=== PATIENT | female | born 1935 | race Caucasian/White ===

== ENCOUNTER → 2018-02-04 | Day surgery (SDC) | payer MEDICARE, OTHER ==
[~2018-02-04] MED LIST: AMLO5TAB7 PO; ASPI325T8 PO; BYSTOLIC20 MG PO; IV RINGERS,LACTATED 1000ML 1,000 ML IV SCH; LIDOCAINE 1% PF 2 ML VIAL. ID PRN; LIDOCAINE 1% PF 2 ML VIAL. ONE; LOSA100T7 PO; METF10007 PO; MIDAZOLAM HCL/PF 2 MG/2 ML VIAL. IV PRN; PANT20TA2 PO; PRAV10TA2 PO; PROPOFOL 20 ML IV ONE; fentaNYL PF VIAL 100 MCG/2 ML VIAL IV PRN
[2018-02-04 10:28] VITALS: BP 177/84
--- NOTE | 2018-02-07 14:07 | PATHOLOGY ---
[facility] Accession Number: [id number] . 01 Material submitted: . DISTAL ESOPHAGUS BIOPSY . 01 Clinical history: . GERD . 02 Diagnosis: Esophageal biopsies, distal esophagus: - Segments of hyperplastic squamous esophageal mucosa and segment of gastric mucosa showing chronic inflammation, consistent with reflux esophagitis. (JPM:christopher; 02/07/2018) QMS/02/07/2018 . 02 Comment: Sections of the distal esophageal biopsy reveal multiple segments of tangentially oriented hyperplastic squamous esophageal mucosa and a segment of gastric mucosa showing [id number] chronic inflammation. The findings are consistent with reflux esophagitis. There is no evidence of Funk's change, dysplasia, or malignancy. (JPM:christopher; 02/07/2018) . 02 Electronically signed: . Bienvenido Varela MD, Pathologist NPI- [id number] . 01 Gross description: . Received in formalin labeled "Wideman, Ghislaine, distal esophagus BX," are 4 segments of tristan soft tissue measuring 1.0 x 0.6 x 0.3 cm in aggregate dimensions and ranging from 0.3 to 0.4 cm in maximum dimension. The specimen is submitted entirely in cassette A1. (TSD; 02/04/2018) TOB/TOB . 02 Pathologist provided ICD-10: K21.0 . 02 CPT . 646013 Specimen Comment: A courtesy copy of this report has been sent to Specimen Comment: [phone], . Specimen Comment: Report sent to / DR SPICER Specimen Comment: A duplicate report has been generated due to demographic updates. Performed at: [address] [id number] MD Juno Carballo MD Phone: [phone] Performed at: [address] [id number] MD Bienvenido Varela MD Phone: [phone]
== END | disposition home or self-care (01) ==
LOC: SURG 08:26
PROVIDERS: ATTEND Internal Medicine Gastroenterology
DX: K21.0 Gastro-esophageal reflux disease with esophagitis (principal); I10 Essential (primary) hypertension; E78.00 Pure hypercholesterolemia, unspecified; G47.30 Sleep apnea, unspecified; K21.9 Gastro-esophageal reflux disease without esophagitis; E11.9 Type 2 diabetes mellitus without complications; Z90.710 Acquired absence of both cervix and uterus; Z98.890 Other specified postprocedural states; Z79.899 Other long term (current) drug therapy; Z85.828 Personal history of other malignant neoplasm of skin
CPT/HCPCS: 43239; 82962; 88305; J2704

== ENCOUNTER 2020-12-16 16:40 | Inpatient (IN) | payer MEDICARE, OTHER ==
[~2020-12-16] VITALS: Ht 154.9 cm; Wt 90.0 kg
[~2020-12-16 16:40] MED LIST changes: +ACET325T21 PO; +AMLO-186 PO; -AMLO5TAB7 PO; +ASPI81TA59 PO; +BIOT25006 PO; +CALC600T60 PO; +CETI10TA16 PO; +GUAI600T47 PO; +HYDR-2145 PO; +HYDR-2867 PO; +INSU100V35 SQ; +INSU100V8 SQ; -IV RINGERS,LACTATED 1000ML 1,000 ML IV SCH; -LIDOCAINE 1% PF 2 ML VIAL. ID PRN; -LIDOCAINE 1% PF 2 ML VIAL. ONE; +LOSA100T14 PO; -LOSA100T7 PO; +METO50TA6 PO; -MIDAZOLAM HCL/PF 2 MG/2 ML VIAL. IV PRN; -PROPOFOL 20 ML IV ONE; +THYR60TA PO; +UBID10CA5 PO; +ZINC50TA39 PO; +ZOLP5TAB PO; -fentaNYL PF VIAL 100 MCG/2 ML VIAL IV PRN
--- NOTE | 2020-12-16 16:45 | NUR ---
patient arrived via EMS in stable condition. slightly dizzy upon walking to bathroom.
[2020-12-16 18:00] VITALS: BP 139/65
[2020-12-16] MEDS ORDERED: CHOL500045 PO (19:08)
[2020-12-16] MEDS ORDERED: OMEG1CAP27 PO (19:08)
[2020-12-16] MEDS ORDERED: BYSTOLIC20 MG PO (19:13)
[2020-12-16] MEDS ORDERED: ASPI-630 PO (19:13)
[2020-12-16] MEDS ORDERED: ESCITALOPRAM OXA5 MG PO (19:13)
[2020-12-16] MEDS ORDERED: PRAV40TA2 PO (19:13)
[2020-12-16] MEDS ORDERED: ASCO500C9 PO (19:28)
[2020-12-16] MEDS ORDERED: PHYT100T PO (19:28)
[2020-12-16] MEDS ORDERED: CYAN50009 PO (19:28)
[2020-12-16] MEDS ORDERED: UBID100C26 PO (19:28)
[2020-12-16] MEDS ORDERED: PYRI100L2 PO (19:28)
--- NOTE | 2020-12-16 19:29 | NUR ---
patient and family DO NOT want patient to be switched to Metoprolol, patient takes Bystolic and has own home med that will be sent to pharmacy to tag to give to patient. Patient also takes Vitamin K (triple play) unable to enter that as a home med and will also be sent to pharmacy to tag. If any other medication on her home med list is not provided by [facility] the patient is to take her own home med per patient and family.
[2020-12-16] MEDS ORDERED: CALCIUM CARBONATE 500 MG TAB.CHEW PO PRN (20:15)
[2020-12-16] MEDS ORDERED: oxyCODONE/APAP 5/325 1 TAB TABLET PO PRN ×2 (20:15)
[2020-12-16] MEDS ORDERED: ONDANSETRON PF 4 MG/2 ML VIAL. IVP PRN (20:15)
[2020-12-16] MEDS ORDERED: ELECTROLYTE (NON-ICU) PROTOCOL. MC PRN (20:15)
[2020-12-16] MEDS ORDERED: ACETAMINOPHEN 325 MG TABLET. PO PRN ×2 (20:15)
[2020-12-16] MEDS ORDERED: ZOLPIDEM 5 MG TABLET. PO PRN ×2 (20:15)
[2020-12-16] MEDS ORDERED: NEBIVOLOL HCL 10 MG PO SCH (21:00)
[2020-12-16] MEDS: SENNOSIDES/DOCUSATE 8.6/50MG TABLET. PO SCH (21:00)
[2020-12-16] MEDS: HEPARIN for SUB-Q USE 5,000 UNIT/ML VIAL. SQ SCH (21:35)
[2020-12-16] MEDS ORDERED: HEPARIN for SUB-Q USE 5,000 UNIT/ML VIAL. SQ SCH (22:00)
[2020-12-16 23:00] VITALS: BP 125/70
[2020-12-17 03:00] VITALS: BP 139/64
[2020-12-17 07:00] VITALS: BP 170/66
[2020-12-17] MEDS ORDERED: PANTOPRAZOLE 40 MG TABLET.DR. PO SCH (07:30)
[2020-12-17] MEDS: HEPARIN for SUB-Q USE 5,000 UNIT/ML VIAL. SQ SCH (09:00)
[2020-12-17] MEDS ORDERED: CETIRIZINE HCL 10 MG TABLET. PO SCH (09:00)
[2020-12-17] MEDS ORDERED: hydroCHLOROthiazide 25 MG TABLET PO SCH (09:00)
[2020-12-17] MEDS ORDERED: ASPIRIN CHEWABLE 81 MG TABLET. PO SCH (09:00)
[2020-12-17] MEDS ORDERED: LOSARTAN POTASSIUM 50 MG TABLET. PO SCH (09:00)
[2020-12-17] MEDS ORDERED: ASPIRIN RECTAL 300 MG SUPP. PR PRN (10:00)
[2020-12-17] MEDS: SENNOSIDES/DOCUSATE 8.6/50MG TABLET. PO SCH (10:57)
[2020-12-17 11:00] VITALS: BP_SYST 129; BP_SYST 134; BP_SYST 145; BP_DIAS 70; BP_DIAS 73; BP_DIAS 76
--- NOTE | 2020-12-17 11:17 | NUR ---
SW following. Discussed with RN. pt from home with son, room air, cardiac diet. COVID-19 positive from test in [facility]. Neurology following.SW will continue to follow.
[2020-12-17 11:18] LABS: CHOLESTEROL/HDL RATIO 3.4
[2020-12-17] MEDS ORDERED: ASPIRIN ENTERIC COATED 325 MG TABLET.DR. PO SCH (12:00)
--- NOTE | 2020-12-17 14:03 | PDOC1 ---
History and Physical Date of Service: DOS: DATE: 12/17/20 TIME: 14:03 Chief Complaint: Problems: (1) Dizziness Chief Complain: Dizziness History of Present Illness: HPI: Patient is an 85-year-old female who presented to [facility] yesterday due to a 1 day history of dizziness. Patient reports she felt a bit dizzy Wednesday when at [employer] and this progressed notably to where she was dizzy with any sort of ambulation. Patient with previous CVA and July. Minimal residual deficits. At [facility] emergency room yesterday CT scan performed was all concerning for a posterior stroke. However could not be fully assessed on CT thus sent here for MRI. Evaluated at bedside patient was endorsing ongoing dizziness. Also endorsing occasional headaches. Denies any sort of vision changes, chest pain, shortness of breath, abdominal pain. Denies any new focal deficits. Patient being evaluated by neurology. Incidentally found to be Covid positive. Past Medical/Surgical History: PMH/PSH: Hypertension, hypothyroid, CVA July 2020 Allergies: Allergies: Coded Allergies: No Known Drug Allergies (Unverified , 02/04/18) Family History: Family History: Unknown Social History: Social History: Denies alcohol tobacco drug use Current Medications: Current Medications Current Medications Acetaminophen (Tylenol) 650 mg PRN Q6HRS PRN PO MILD PAIN / TEMP > 100.3'F; Start 12/16/20 at 20:15; Stop 12/16/20 at 20:51; Status DC Aspirin (Aspirin Chewable) 81 mg DAILY PO Last administered on 12/17/20at 10:56; Start 12/17/20 at 09:00 Cetirizine HCl (ZyrTEC) 10 mg DAILY PO Last administered on 12/17/20at 10:57; Start 12/17/20 at 09:00 Hydrochlorothiazide (Hydrodiuril) 25 mg DAILY PO Last administered on 12/17/20at 10:56; Start 12/17/20 at 09:00 Thyroid (Hope Thyroid) 60 mg 3X/WEEK PO ; Start 12/18/20 at 09:00; Stop 12/16/20 at 20:55; Status DC Zolpidem Tartrate (Ambien) 5 mg PRN QHS PRN PO INSOMNIA; Start 12/16/20 at 20:15; Status Cancel Non-Formulary Medication (Escitalopram Oxalate (Lexapro)) 0.5 tab DAILY PO ; Start 12/17/20 at 09:00; Stop 12/17/20 at 11:06; Status DC Losartan Potassium (Cozaar) 100 mg DAILY PO Last administered on 12/17/20at 10:57; Start 12/17/20 at 09:00 Non-Formulary Medication (Nebivolol Hcl (Bystolic)) 20 mg HS PO Last administered on 12/16/20at 21:31; Start 12/16/20 at 21:00 Pantoprazole Sodium (Protonix) 40 mg DAILYAC PO Last administered on 12/17/20at 10:57; Start 12/17/20 at 07:30 Non-Formulary Medication (Pravastatin Sodium ) 0.5 tab QHS PO Last administered on 12/16/20at 21:32; Start 12/16/20 at 21:00 Ondansetron HCl (Zofran) 4 mg PRN Q6HRS PRN IVP NAUSEA/VOMITING; Start 12/16/20 at 20:15 Calcium Carbonate/ Glycine (Tums) 500 mg PRN Q3HRS PRN PO UPSET STOMACH; Start 12/16/20 at 20:15 Zolpidem Tartrate (Ambien) 5 mg PRN QHS PRN PO INSOMNIA, MAY REPEAT IN 1HR Last administered on 12/16/20at 21:37; Start 12/16/20 at 20:15 Info (Non-Icu Electrolyte Protocol) 1 ea PRN DAILY PRN MC SEE COMMENTS; Start 12/16/20 at 20:15 Oxycodone/ Acetaminophen (Percocet 5/325) 1 tab PRN Q4HRS PRN PO MILD PAIN, 1ST CHOICE; Start 12/16/20 at 20:15 Oxycodone/ Acetaminophen (Percocet 5/325) 2 tab PRN Q4HRS PRN PO MODERATE PAIN, SEVERE PAIN; Start 12/16/20 at 20:15 Acetaminophen (Tylenol) 650 mg PRN Q6HRS PRN PO Headaches, Temp > 101.5F; Start 12/16/20 at 20:15 Senna/Docusate Sodium (Senna Plus) 1 tab BID PO Last administered on 12/17/20at 10:57; Start 12/16/20 at 21:00 Heparin Sodium (Porcine) (Heparin Sodium) 5,000 unit Q8HRS SQ ; Start 12/16/20 at 22:00; Status Cancel Heparin Sodium (Porcine) (Heparin Sodium) 5,000 unit Q12HR SQ Last administered on 12/16/20at 21:35; Start 12/16/20 at 21:00 Non-Formulary Medication (Hope Thyroid 60 Mg Tablet) 1 ea 3X/WEEK PO ; Start 12/18/20 at 09:00 Atorvastatin Calcium (Lipitor) 80 mg QHS PO ; Start 12/17/20 at 21:00; Stop 12/17/20 at 13:08; Status DC Aspirin (Ecotrin) 325 mg DAILYWBKFT PO ; Start 12/17/20 at 12:00 Aspirin (Aspirin Rectal Supp) 300 mg PRN DAILY PRN RI IF UNABLE TO TAKE PO; Start 12/17/20 at 10:00 Non-Formulary Medication (Escitalopram Oxalate (Lexapro)) 0.5 tab NOON PO Last administered on 12/17/20at 12:00; Start 12/17/20 at 12:00 Active Scripts Active Acetaminophen 325 Mg Tablet 650 Mg PO PRN Q6HRS PRN 30 Days Reported Vitamin K (Phytonadione) 100 Mcg Tablet 1 Tab PO 3X/WEEK 30 Days Vitamin B12 (Cyanocobalamin (Vitamin B-12)) 5,000 Mcg Tab.rapdis 1 Tab PO 3X/W [place] 30 Days Vitamin C (Ascorbic Acid) 500 Mg Capsule 1,000 Mg PO 3X/WEEK Vitamin B6 (Pyridoxine HCl (Vitamin B6)) 100 Mg/2.5 Ml Liquid 100 Mg PO 3X/WEEK Coq-10 (Ubidecarenone) 100 Mg Capsule 100 Mg PO 3X/WEEK Pravastatin Sodium 40 Mg Tablet 1 Tab PO QHS Bystolic (Nebivolol Hcl) 20 Mg Tablet 20 Mg PO HS Lexapro (Escitalopram Oxalate) 5 Mg Tablet 1 Tab PO DAILY 30 Days Aspirin 81 Mg Tab.chew 1 Tab PO DAILY Fish Oil 1,000 Mg Softgel ([place]-3 Fatty Acids/Fish Oil) 1 Each Capsule 1 Cap PO QID 30 Days WITH MEALS Vitamin D3 (Cholecalciferol (Vitamin D3)) 125 Mcg Tablet 125 Mcg PO DAILY Ambien (Zolpidem Tartrate) 5 Mg Tablet 5 Mg PO PRN QHS PRN Biotin 2,500 Mcg Capsule 2 Cap PO DAILY 30 Days Hope Thyroid (Thyroid,Pork) 60 Mg Tablet 1 Tab PO 3X/WEEK Zinc 50 Mg Tablet 1 Tab PO 3X/WEEK 30 Days Hydrochlorothiazide Tablet (Hydrochlorothiazide) 25 Mg Tablet 25 Mg PO DAILY Cetirizine Hcl 10 Mg Tablet 1 Tab PO DAILY Mucinex (Guaifenesin) 600 Mg Tablet.er 1 Tab PO DAILY 10 Days Protonix (Pantoprazole Sodium) 20 Mg Tablet.dr 40 Mg PO DAILY Metformin Hcl 1,000 Mg Tablet 1,000 Mg PO BIDWMEALS Losartan Potassium 100 Mg Tablet 100 Mg PO DAILY ROS: Review of Systems Review of System Negative unless noted in HPI Physical Exam: Vital Signs: Vital Signs Date Time Temp Pulse Resp B/P (MAP) Pulse Ox O2 Delivery O2 Flow Rate FiO2 12/17/20 11:00 72 145/76 (99) 12/17/20 11:00 98.4 18 95 Room Air 98.4 Physcial Exam: GEN: No apparent distress. Alert and oriented HEENT: Normal cephalic, atraumatic, external auditory canals are patent EYES: Extraocular muscles are intact, pupil are equally round and reactive to light and accommodation MUSCULOSKELETAL: Well developed , well nourished, good range of motion ENDOCRINE: No thyromegaly was palpated LYMPHATICS: No cervical chain or axillary nodes were noted HEMATOPOIETIC: No bruising NECK: Supple, no JVD, no thyromegaly was noted LUNGS: Clear to auscultation in all lung duong without rhonchi or wheezing HEART: RRR, S!, S2 present. Peripheral pulses intact, no obvious murmurs noted ABDOMEN: Soft, nontender. Positive bowel sounds, no organomegaly, normal bowel sounds EXTREMITIES: Without clubbing, cyanosis, or edema. Pedal pulses intact. Negative Homans sign NEUROLOGIC: Normal speech and tone. A&O x 3, moves all extremities, no o bvious focal deficits PSYCHIATRIC: Normal affect, normal mood. Stable SKIN: No ulcerations or rashes, good skin turgor, no jaundice VASCULAR: Good capillary refill, neurovascular bundle appears to be intact Labs: Labs: Laboratory Tests Test 12/17/20 10:30 Triglycerides Level 112 mg/dL (0-150) Cholesterol Level 168 mg/dL (0-200) LDL Cholesterol, Calculated 96 mg/dL (0-100) VLDL Cholesterol, Calculated 22 mg/dL (0-40) Non-HDL Cholesterol Calculated 118 mg/dL (0-129) HDL Cholesterol 50 mg/dL (40-60) Cholesterol/HDL Ratio 3.4 Laboratory Tests Test 12/17/20 10:30 Triglycerides Level 112 mg/dL (0-150) Cholesterol Level 168 mg/dL (0-200) LDL Cholesterol, Calculated 96 mg/dL (0-100) VLDL Cholesterol, Calculated 22 mg/dL (0-40) Non-HDL Cholesterol Calculated 118 mg/dL (0-129) HDL Cholesterol 50 mg/dL (40-60) Cholesterol/HDL Ratio 3.4 Assessment/Plan Assessment/Plan Dizziness likely peripheral vertigo, History of left thalamic hemorrhage, Covid positive MRI ordered and pending. If patient needs to stay overnight will have PT OT evaluate Home meds resumed as indicated DVT prophylaxis If MRI normal will discharge home and have neurology follow-up Discussed plan and case with patient's family Justifications for Admission Other Justification Acute thalamic hemorrhage DAT DHALIWAL MD Dec 17, 2020 14:03
[2020-12-17 15:00] VITALS: BP 129/60
--- NOTE | 2020-12-17 15:16 | PDOC2 ---
NEUROLOGY CONSULT Date of Service DOS: DATE: 12/17/20 TIME: 15:07 Reason for Consult Reason for Consult: Dizziness, ataxia Referring Physician Referring Physician: Dr. Neff Source Source: Caregiver (Daughter), Chart review, Patient History of Present Illness History of Present Illness The patient is an 85-year-old right-handed female who felt a little bit off balance on 12/15 when going to [employer]ab[employer], then was more dizzy yesterday. She says that the room was spinning although she told the emergency department physician yesterday that it was not spinning. There was no dysarthria, diplopia, or dysphagia. I saw the patient in July for a left thalamic hemorrhagic stroke. Follow-up CT scans, CT angiogram, echocardiogram were unremarkable. She had physical and Occupational Therapy. I saw her in the office on 09/13. She was complaining of some bilateral hip pain, left leg numbness, anxiety and panic for which her primary care physician started Lexapro. Interestingly then she was complaining of occasional positional vertigo and headaches. I reviewed the [facility] emergency room visit from yesterday. She did have a negative CT of the head and CT angiogram. She is rapid Covid negative but PCR positive. She has had no Covid symptoms. She is feeling better today and would like to go home. Past Medical History Cardiovascular: HTN CENTRAL NERVOUS SYSTEM: CVA (Left thalamic hemorrhage, 07/2020) Musculoskeletal: Osteoarthritis Endocrine: Hypothyroidism Past Surgical History Past Surgical History: Cataract Removal, Hysterectomy, Other (Left knee, trigger finger release) Family History Family History: CVA, Hypertension Social History Social History No tobacco or alcohol, lives with family Current Medications Current Medications Current Medications Acetaminophen (Tylenol) 650 mg PRN Q6HRS PRN PO MILD PAIN / TEMP > 100.3'F; Start 12/16/20 at 20:15; Stop 12/16/20 at 20:51; Status DC Aspirin (Aspirin Chewable) 81 mg DAILY PO Last administered on 12/17/20at 10:56; Start 12/17/20 at 09:00 Cetirizine HCl (ZyrTEC) 10 mg DAILY PO Last administered on 12/17/20at 10:57; Start 12/17/20 at 09:00 Hydrochlorothiazide (Hydrodiuril) 25 mg DAILY PO Last administered on 12/17/20at 10:56; Start 12/17/20 at 09:00 Thyroid (Jackson Thyroid) 60 mg 3X/WEEK PO ; Start 12/18/20 at 09:00; Stop 12/16/20 at 20:55; Status DC Zolpidem Tartrate (Ambien) 5 mg PRN QHS PRN PO INSOMNIA; Start 12/16/20 at 20:15; Status Cancel Non-Formulary Medication (Escitalopram Oxalate (Lexapro)) 0.5 tab DAILY PO ; Start 12/17/20 at 09:00; Stop 12/17/20 at 11:06; Status DC Losartan Potassium (Cozaar) 100 mg DAILY PO Last administered on 12/17/20at 10:57; Start 12/17/20 at 09:00 Non-Formulary Medication (Nebivolol Hcl (Bystolic)) 20 mg HS PO Last administered on 12/16/20at 21:31; Start 12/16/20 at 21:00 Pantoprazole Sodium (Protonix) 40 mg DAILYAC PO Last administered on 12/17/20at 10:57; Start 12/17/20 at 07:30 Non-Formulary Medication (Pravastatin Sodium ) 0.5 tab QHS PO Last administered on 12/16/20at 21:32; Start 12/16/20 at 21:00 Ondansetron HCl (Zofran) 4 mg PRN Q6HRS PRN IVP NAUSEA/VOMITING; Start 12/16/20 at 20:15 Calcium Carbonate/ Glycine (Tums) 500 mg PRN Q3HRS PRN PO UPSET STOMACH; Start 12/16/20 at 20:15 Zolpidem Tartrate (Ambien) 5 mg PRN QHS PRN PO INSOMNIA, MAY REPEAT IN 1HR Last administered on 12/16/20at 21:37; Start 12/16/20 at 20:15 Info (Non-Icu Electrolyte Protocol) 1 ea PRN DAILY PRN MC SEE COMMENTS; Start 12/16/20 at 20:15 Oxycodone/ Acetaminophen (Percocet 5/325) 1 tab PRN Q4HRS PRN PO MILD PAIN, 1ST CHOICE; Start 12/16/20 at 20:15 Oxycodone/ Acetaminophen (Percocet 5/325) 2 tab PRN Q4HRS PRN PO MODERATE PAIN, SEVERE PAIN; Start 12/16/20 at 20:15 Acetaminophen (Tylenol) 650 mg PRN Q6HRS PRN PO Headaches, Temp > 101.5F; Start 12/16/20 at 20:15 Senna/Docusate Sodium (Senna Plus) 1 tab BID PO Last administered on 12/17/20at 10:57; Start 12/16/20 at 21:00 Heparin Sodium (Porcine) (Heparin Sodium) 5,000 unit Q8HRS SQ ; Start 12/16/20 at 22:00; Status Cancel Heparin Sodium (Porcine) (Heparin Sodium) 5,000 unit Q12HR SQ Last administered on 12/16/20at 21:35; Start 12/16/20 at 21:00 Non-Formulary Medication (Jackson Thyroid 60 Mg Tablet) 1 ea 3X/WEEK PO ; Start 12/18/20 at 09:00 Atorvastatin Calcium (Lipitor) 80 mg QHS PO ; Start 12/17/20 at 21:00; Stop 12/17/20 at 13:08; Status DC Aspirin (Ecotrin) 325 mg DAILYWBKFT PO ; Start 12/17/20 at 12:00 Aspirin (Aspirin Rectal Supp) 300 mg PRN DAILY PRN AL IF UNABLE TO TAKE PO; Start 12/17/20 at 10:00 Non-Formulary Medication (Escitalopram Oxalate (Lexapro)) 0.5 tab NOON PO Last administered on 12/17/20at 12:00; Start 12/17/20 at 12:00 Active Scripts Active Acetaminophen 325 Mg Tablet 650 Mg PO PRN Q6HRS PRN 30 Days Reported Vitamin K (Phytonadione) 100 Mcg Tablet 1 Tab PO 3X/WEEK 30 Days Vitamin B12 (Cyanocobalamin (Vitamin B-12)) 5,000 Mcg Tab.rapdis 1 Tab PO 3X/WEEK 30 Days Vitamin C (Ascorbic Acid) 500 Mg Capsule 1,000 Mg PO 3X/WEEK Vitamin B6 (Pyridoxine HCl (Vitamin B6)) 100 Mg/2.5 Ml Liquid 100 Mg PO 3X/WEEK Coq-10 (Ubidecarenone) 100 Mg Capsule 100 Mg PO 3X/WEEK Pravastatin Sodium 40 Mg Tablet 1 Tab PO QHS Bystolic (Nebivolol Hcl) 20 Mg Tablet 20 Mg PO HS Lexapro (Escitalopram Oxalate) 5 Mg Tablet 1 Tab PO DAILY 30 Days Aspirin 81 Mg Tab.chew 1 Tab PO DAILY Fish Oil 1,000 Mg Softgel ([place]-3 Fatty Acids/Fish Oil) 1 Each Capsule 1 Cap PO QID 30 Days WITH MEALS Vitamin D3 (Cholecalciferol (Vitamin D3)) 125 Mcg Tablet 125 Mcg PO DAILY Ambien (Zolpidem Tartrate) 5 Mg Tablet 5 Mg PO PRN QHS PRN Biotin 2,500 Mcg Capsule 2 Cap PO DAILY 30 Days [place] Thyroid (Thyroid,Pork) 60 Mg Tablet 1 Tab PO 3X/WEEK Zinc 50 Mg Tablet 1 Tab PO 3X/WEEK 30 Days Hydrochlorothiazide Tablet (Hydrochlorothiazide) 25 Mg Tablet 25 Mg PO DAILY Cetirizine Hcl 10 Mg Tablet 1 Tab PO DAILY Mucinex (Guaifenesin) 600 Mg Tablet.er 1 Tab PO DAILY 10 Days Protonix (Pantoprazole Sodium) 20 Mg Tablet.dr 40 Mg PO DAILY Metformin Hcl 1,000 Mg Tablet 1,000 Mg PO BIDWMEALS Losartan Potassium 100 Mg Tablet 100 Mg PO DAILY Allergies Allergies: Coded Allergies: No Known Drug Allergies (Unverified , 02/04/18) ROS Review of System Negative for fever, chills, weight loss, shortness of breath, chest pain, indigestion, hematochezia, melena, and dysuria. Full 14-point review of systems is negative. Physical Exam Physical Examination General: Well-developed, well-nourished white female, in no acute distress HEENT: Normocephalic andatraumatic. Tympanic membranes clear.Temporal arteries pulsatile and nontender.e Neck: Supple without bruit, no meningismus Musculoskeletal: Stability:see neurologic. Gait exam:see neurologic. Tone:see neurologic.Strength:see neurologic. Neurological: Mental Status:intact, orientation, memory, attention span/concentration, language, fund of knowledge normal. Cranial Nerves:Pupils equal and reactive to light, extraocular movements areintact, visual duong are full to confrontation. Facial sensation is normal. There is no facial asymmetry. Vestibulo-ocular reflex is intact. No nystagmus evoked. Palate elevates and tongue protrudes in midline. All other cranial related problems are negative except as mentioned before.Reflexes:2+ and symmetric with flexor plantar responses. Motor:5/5 strength with normal tone and bulk. Coordination:Finger- nose finger and [id number] testing are normal. Rapid alternating movements and fine finger movements are intact. Gait:A little unsteady. Sensory:Normal pinprick, vibration, light touch, proprioception. Vitals VITALS Vital Signs Date Time Temp Pulse Resp B/P (MAP) Pulse Ox O2 Delivery O2 Flow Rate FiO2 12/17/20 11:00 72 145/76 (99) 12/17/20 11:00 98.4 18 95 Room Air 98.4 Labs Labs Laboratory Tests Test 12/17/20 10:30 Triglycerides Level 112 mg/dL (0-150) Cholesterol Level 168 mg/dL (0-200) LDL Cholesterol, Calculated 96 mg/dL (0-100) VLDL Cholesterol, Calculated 22 mg/dL (0-40) Non-HDL Cholesterol Calculated 118 mg/dL (0-129) HDL Cholesterol 50 mg/dL (40-60) Cholesterol/HDL Ratio 3.4 Laboratory Tests Test 12/17/20 10:30 Triglycerides Level 112 mg/dL (0-150) Cholesterol Level 168 mg/dL (0-200) LDL Cholesterol, Calculated 96 mg/dL (0-100) VLDL Cholesterol, Calculated 22 mg/dL (0-40) Non-HDL Cholesterol Calculated 118 mg/dL (0-129) HDL Cholesterol 50 mg/dL (40-60) Cholesterol/HDL Ratio 3.4 Images Images CTA Head: Aplastic/markedly hypoplastic left A1 segment. The visualized distal internal carotid arteries, anterior and middle cerebral arteries are patent and normal caliber. The distal vertebral arteries, basilar artery, and posterior cerebral arteries are patent and normal caliber. No aneurysm or arteriovenous malformation is seen. CTA Neck: Right carotid: The right common carotid artery is patent and normal caliber. Atherosclerosis of the carotid bifurcation. No stenosis of the right internal carotid artery per NASCET criteria. The right external carotid artery is patent. Left carotid: The left common carotid artery is patent and normal caliber. At herosclerosis of the carotid bifurcation. 50 percent stenosis of the left internal carotid artery per NASCET criteria. The left external carotid artery is patent. Right vertebral: The right vertebral artery is patent and normal caliber. Left vertebral: The left vertebral artery is patent and normal caliber. The visualized portions of the aortic arch are normal. The origins of the brachiocephalic and subclavian arteries are normal. No cervical lymphadenopathy. The thyroid gland is normal. The parotid and submandibular glands are normal. The visualized aerodigestive tract is unremarkable. Moderate multilevel degenerative disc height loss. Multilevel disc protrusions and marginal osteophytes results in multilevel spinal canal stenosis. Multilevel uncovertebral and facet arthrosis with multilevel neural foraminal narrowing. The visualized portions of the lungs are clear. IMPRESSION: 1. No aneurysm. No intracranial stenosis or occlusion. 2. Atherosclerosis of the cervical carotid arteries with no stenosis on the right and 50 percent stenosis on the left. 3. Patent vertebral arteries. CT STROKE HEAD W/O Date: 12/16/2020 11:03 AM Clinical Indication: dizzy Comparison: 08/19/2020. Technique: 5 mm axial tomographic images were obtained of the head without contrast. These were viewed on brain and bone windows. One or more of the following dose reduction techniques were utilized: Automated exposure control (AEC), Adjustment of mA and/or kV according to patient size, Use of iterative reconstruction technique such as ASiR, CT scan done according to ALARA and image gently/image wisely Findings: Mild generalized cerebral and cerebellar volume loss. Mild nonspecific periventricular hypoattenuation, most commonly seen with chronic small vessel ischemic disease. Calcified atherosclerosis of the bilateral cavernous and paraclinoid internal carotid arteries and intracranial vertebral arteries. No intra- or extra-axial mass or fluid collection. No acute hemorrhage. The ventricles are normal in size, shape, and morphology. The melvin-white matter junction is normal. The subarachnoid cisterns are patent. The visualized paranasal sinuses are normal. The visualized portions of the orbits and globes are normal. The mastoid air cells are clear. The fleet administrative assistant topogram shows no lytic lesion or fracture. Impression: No acute hemorrhage or large territory melvin-white loss. Assessment/Plan Assessment/Plan Impression: I suspect peripheral vertigo, she has had this before History of left thalamic hemorrhage Covid positive Recommendations: Await MRI results Further stroke work-up only if abnormal Otherwise outpatient vestibular rehab Return to my office in 4-6 weeks. Discussed with patient and her daughter. Thank you for letting me help with the patient's care. EVELIN MOJICA MD Dec 17, 2020 15:16
--- NOTE | 2020-12-17 16:34 | CARD ---
MR#: [id number] Date of Study: 12/17/2020 Ordering Physician: EVELIN MOJICA, Referring Physician: EVELIN MOJICA, Tech: Archana Troncoso [facility] APPROVED REPORT EXAM: Two-dimensional and M-mode echocardiogram with Doppler and color Doppler. Other Information Quality : AverageHR: 65bpm Rhythm : NSR INDICATION Dizziness and Vertigo RISK FACTORS Hypertension Obesity 2D DIMENSIONS RVDd2.6 (2.9-3.5cm)Left Atrium(2D)3.2 (1.6-4.0cm) IVSd0.8 (0.7-1.1cm)Aortic Root(2D)3.0 (2.0-3.7cm) LVDd3.8 (3.9-5.9cm)LVOT Diameter2.2 (1.8-2.4cm) PWd0.9 (0.7-1.1cm)LVDs2.7 (2.5-4.0cm) FS (%) 27.6 %SV33.2 ml Aortic Valve AoV Peak Varinder.110.4cm/sAoV VTI25.5cm AO Peak GR.4.9mmHgLVOT Peak Varinder.84.8cm/s AO Mean GR.3mmHgAVA (VMAX)2.98cm2 Mitral Valve MV E Zubzvcqm80.3cm/sMV DECEL [id number] MV A Ssyqqxnw14.5cm/sE/A Ratio1.0 Pulmonary Valve PV Peak Uzcceftl92.3cm/s Tricuspid Valve TR P. Gdvsweia253ht/sTR Peak Gr.22mmHg LEFT VENTRICLE The left ventricle is normal size. There is normal left ventricular wall thickness. The left ventricu lar systolic function is normal and the ejection fraction is within normal range. Estimated ejection fraction 60-65%. There is normal LV segmental wall motion. Transmitral Doppler flow pattern is Grade I-abnormal relaxation pattern. RIGHT VENTRICLE The right ventricle is normal size. There is normal right ventricular wall thickness. The right ventr icular systolic function is normal. ATRIA The left atrium size is normal. The right atrium size is normal. The interatrial septum is intact wit h no evidence for an atrial septal defect or patent foramen ovale as noted on 2-D or Doppler imaging. AORTIC VALVE The aortic valve is normal in structure and function. Doppler and Color Flow revealed no significant aortic regurgitation. There is no significant aortic valvular stenosis. MITRAL VALVE The mitral valve is normal in structure and function. There is no evidence of mitral valve prolapse. There is no mitral valve stenosis. Doppler and Color-flow revealed mild mitral regurgitation. TRICUSPID VALVE The tricuspid valve is normal in structure and function. Doppler and Color Flow revealed trace tricus pid regurgitation. Estimated PAP 27 mmHg. There is no tricuspid valve stenosis. PULMONIC VALVE The pulmonary valve is normal in structure and function. Doppler and Color Flow revealed mild pulmoni c valvular regurgitation. GREAT VESSELS The aortic root is normal in size. The ascending aorta is normal in size. The IVC is normal in size a nd collapses >50% with inspiration. PERICARDIAL EFFUSION There is no evidence of significant pericardial effusion. Critical Notification Critical Value: No <Conclusion> The left ventricle is normal size. The left ventricular systolic function is normal and the ejection fraction is within normal range. Estimated ejection fraction 60-65%. There is normal LV segmental wall motion. Doppler and Color Flow revealed no significant aortic regurgitation. There is no significant aortic valvular stenosis. Doppler and Color-flow revealed mild mitral regurgitation. Doppler and Color Flow revealed trace tricuspid regurgitation. Estimated PAP 27 mmHg. Signed by : Blas Downing MD Electronically Approved : 12/17/2020 16:33:50
--- NOTE | 2020-12-17 17:37 | RAD ---
INDICATION: Dizziness with concern for stroke. Ataxia. COMPARISON: December 16, 2020 CT angiogram. MRI from July 2020 TECHNIQUE: Multiplanar, multisequence MRI images obtained through the brain. FINDINGS: No midline shift. Basilar cistern patent. No regions of abnormal restricted diffusion. Ventricles and sulci are globally prominent which can be seen with age-related volume loss. No intrac ranial hemorrhage or gross mass seen. No retro-orbital hematoma. Nasal septal bowing to the right. IMPRESSION: * No MRI evidence of acute infarct or hemorrhage. * Scattered foci of high T2 signal within the white matter. Nonspecific but can be from chronic smal l vessel ischemic disease, sequela of migraine or demyelination. * There is some T2 hyperintensity within the brainstem without definite associated restricted diffus ion. This could be from gliosis from previous insult to the region. This was seen on prior as well. * There is some blooming artifact identified within the left thalamus to internal capsule region leia suring approximately 11 mm. This was also seen on prior and could be secondary to calcifications or h emosiderin deposition. Electronically signed by: Domenico Valverde MD (12/17/2020 5:35 PM) [id number]
--- NOTE | 2020-12-17 19:57 | PDOC3 ---
[facility]-Discharge Summary Date of Admission: Date of Admission: Dec 17, 2020 Date of Discharge: Date of Discharge: Dec 17, 2020 Admission Diagnosis: Problems: (1) Dizziness Consults: Consults: Neuro Hospital Course: Hospital Course: Patient is an 85-year-old female who presented to [facility] yesterday due to a 1 day history of dizziness. Patient reports she felt a bit dizzy Wednesday when at [employer] and this progressed notably to where she was dizzy with any sort of ambulation. Patient with previous CVA and Nanette. Minimal residual deficits. At [facility] emergency room yesterday CT scan performed was all concerning for a posterior stroke. However could not be fully assessed on CT thus sent here for MRI. Evaluated at bedside patient was endorsing ongoing dizziness. Also endorsing occasional headaches. Denies any sort of vision changes, chest pain, shortness of breath, abdominal pain. Denies any new focal deficits. Patient being evaluated by neurology. Incidentally found to be Covid positive MRI brain performed negative for stroke. Patient evaluated by neurology. Patient and family requesting d/c tonight and will d/c home. Patient stable on d/c. Disposition: Disposition/Orders: D/C to Home Activity: Activity: Resume previous activity Diet: Diet: Regular Medications: Home Meds Active Scripts Acetaminophen (ACETAMINOPHEN) 325 Mg Tablet, 650 MG PO PRN Q6HRS PRN for MILD PAIN / TEMP > 100.3'F for 30 Days, #100 TAB Prov:FRANSISCA CASTILLO MD 07/25/20 Reported Medications Phytonadione (VITAMIN K) 100 Mcg Tablet, 1 TAB PO 3X/WEEK for supplement for 30 Days, #30 TAB 0 Refills 12/16/20 Cyanocobalamin (Vitamin B-12) (Vitamin B12) 5,000 Mcg Tab.rapdis, 1 TAB PO 3X/WEEK for supplement for 30 Days, #30 TAB 0 Refills 12/16/20 Ascorbic Acid (Vitamin C) 500 Mg Capsule, 1000 MG PO 3X/WEEK for supplement, CAP 12/16/20 Pyridoxine HCl (Vitamin B6) (Vitamin B6) 100 Mg/2.5 Ml Liquid, 100 MG PO 3X/WEEK for supplement, LIQUID 12/16/20 Ubidecarenone (COQ-10) 100 Mg Capsule, 100 MG PO 3X/WEEK for brain health, CAP 12/16/20 Pravastatin Sodium (PRAVASTATIN SODIUM) 40 Mg Tablet, 1 TAB PO QHS for GERD, #90 TAB 1 Refill 12/16/20 Nebivolol Hcl (BYSTOLIC) 20 Mg Tablet, 20 MG PO HS for hypertension, TAB 12/16/20 Escitalopram Oxalate (LEXAPRO) 5 Mg Tablet, 1 TAB PO DAILY for anxiety for 30 Days, #30 TAB 0 Refills 12/16/20 Aspirin (ASPIRIN) 81 Mg Tab.chew, 1 TAB PO DAILY for other, #30 TAB 3 Refills 12/16/20 [place]-3 Fatty Acids/Fish Oil (FISH OIL 1,000 MG SOFTGEL) 1 Each Capsule, 1 CAP PO QID for supplement for 30 Days, #120 CAP 0 Refills WITH MEALS 12/16/20 Cholecalciferol (Vitamin D3) (Vitamin D3) 125 Mcg Tablet, 125 MCG PO DAILY for other, TAB 12/16/20 Zolpidem Tartrate (AMBIEN) 5 Mg Tablet, 5 MG PO PRN QHS PRN for INSOMNIA, TAB 0 Refills 07/22/20 Biotin (BIOTIN) 2,500 Mcg Capsule, 2 CAP PO DAILY for supplement for 30 Days, #60 CAP 0 Refills 07/22/20 Thyroid,Pork (ARMOUR THYROID) 60 Mg Tablet, 1 TAB PO 3X/WEEK for supplement, #30 TAB 5 Refills 07/22/20 Zinc (ZINC) 50 Mg Tablet, 1 TAB PO 3X/WEEK for supplement for 30 Days, #30 TAB 0 Refills 07/22/20 Hydrochlorothiazide (HYDROCHLOROTHIAZIDE TABLET ) 25 Mg Tablet, 25 MG PO DAILY for DIURETIC, TAB 0 Refills 07/22/20 Cetirizine Hcl (CETIRIZINE HCL) 10 Mg Tablet, 1 TAB PO DAILY for allergies, #30 TAB 5 Refills 07/22/20 Guaifenesin (MUCINEX) 600 Mg Tablet.er, 1 TAB PO DAILY for cough for 10 Days, #10 TAB 0 Refills 07/22/20 Pantoprazole Sodium (PROTONIX) 20 Mg Tablet.dr, 40 MG PO DAILY, TAB 02/04/18 Metformin Hcl (METFORMIN HCL) 1,000 Mg Tablet, 1000 MG PO BIDWMEALS, TAB 02/04/18 Losartan Potassium (LOSARTAN POTASSIUM) 100 Mg Tablet, 100 MG PO DAILY, TAB 02/04/18 Scheduled Ascorbic Acid (Vitamin C), 1,000 MG PO 3X/WEEK, (Reported) Aspirin (Aspirin), 1 TAB PO DAILY, (Reported) Biotin (Biotin), 2 CAP PO DAILY, (Reported) Cetirizine Hcl (Cetirizine Hcl), 1 TAB PO DAILY, (Reported) Cholecalciferol (Vitamin D3) (Vitamin D3), 125 MCG PO DAILY, (Reported) Cyanocobalamin (Vitamin B-12) (Vitamin B12), 1 TAB PO 3X/WEEK, (Reported) Escitalopram Oxalate (Lexapro), 1 TAB PO DAILY, (Reported) Guaifenesin (Mucinex), 1 TAB PO DAILY, (Reported) Hydrochlorothiazide (Hydrochlorothiazide Tablet ), 25 MG PO DAILY, (Reported) Losartan Potassium (Losartan Potassium), 100 MG PO DAILY, (Reported) Metformin Hcl (Metformin Hcl), 1,000 MG PO BIDWMEALS, (Reported) Nebivolol Hcl (Bystolic), 20 MG PO HS, (Reported) [place]-3 Fatty Acids/Fish Oil (Fish Oil 1,000 Mg Softgel), 1 CAP PO QID, (Reported) Pantoprazole Sodium (Protonix), 40 MG PO DAILY, (Reported) Phytonadione (Vitamin K), 1 TAB PO 3X/WEEK, (Reported) Pravastatin Sodium (Pravastatin Sodium), 1 TAB PO QHS, (Reported) Pyridoxine HCl (Vitamin B6) (Vitamin B6), 100 MG PO 3X/WEEK, (Reported) Thyroid,Pork ([place] Thyroid), 1 TAB PO 3X/WEEK, (Reported) Ubidecarenone (Coq-10), 100 MG PO 3X/WEEK, (Reported) Zinc (Zinc), 1 TAB PO 3X/WEEK, (Reported) Scheduled PRN Acetaminophen (Acetaminophen), 650 MG PO PRN Q6HRS PRN for MILD PAIN / TEMP > 100.3'F Zolpidem Tartrate (Ambien), 5 MG PO PRN QHS PRN for INSOMNIA, (Reported) Justicifation of Admission Dx: Justifications for Admission: Justification of Admission Dx: Yes Stroke - Ischemic: Stroke-Ischemic DAT DHALIWAL MD Dec 17, 2020 19:57
[2020-12-17] MEDS ORDERED: ATORVASTATIN CALCIUM 40 MG TABLET. PO SCH (21:00)
[2020-12-18 01:11] LABS: HEMOGLOBIN A1C 6.3 % (4.8-5.6)
[2020-12-18] MEDS ORDERED: THYROID,PORK 60 MG TABLET PO SCH (09:00)
[2020-12-18] MEDS ORDERED: ARMOUR THYROID 60 MG PO SCH (09:00)
== END 2020-12-17 21:00 | disposition home or self-care (01) | DRG 149 ==
LOC: 5 NORTH 16:40
PROVIDERS: ADMIT Student in an Organized Health Care Education/Training Program; ATTEND Student in an Organized Health Care Education/Training Program
DX: R42 Dizziness and giddiness (principal); U07.1 COVID-19; E03.9 Hypothyroidism, unspecified; F41.9 Anxiety disorder, unspecified; I10 Essential (primary) hypertension; Z82.3 Family history of stroke; Z82.49 Family history of ischemic heart disease and other diseases of the circulatory system; Z90.710 Acquired absence of both cervix and uterus; M19.90 Unspecified osteoarthritis, unspecified site; K21.9 Gastro-esophageal reflux disease without esophagitis; I69.398 Other sequelae of cerebral infarction
CPT/HCPCS: 36415; 70551; 80061; 83036; 93306; J1644; 92610-GN; G0378

== ENCOUNTER → 2021-09-03 | Outpatient (CLI) | payer MEDICARE, OTHER ==
[~2021-09-03] MED LIST changes: +ASCO500C9 PO; +ASPI-630 PO; +CHOL500045 PO; +CYAN50009 PO; +ESCITALOPRAM OXA5 MG PO; +OMEG1CAP27 PO; +PHYT100T PO; +PRAV40TA2 PO; +PYRI100L2 PO; +REGADENOSON 0.4 MG/5 ML DISP.SYRIN. IV ONE; +UBID100C26 PO
--- NOTE | 2021-09-03 17:59 | RAD ---
MR#: [id number] Date of Study: 09/03/2021 Ordering Physician: ARMANDO DOWNING, Referring Physician: DAVID MURCIA Tech: MARLEN Lira, ARRT (R) (N) APPROVED REPORT Test Type: Pharmacological Stress Nurse/Tech: Delores Costa R.N. Test Indications: chest pressure Cardiac History: htn, stroke, dm Medications: see ehr Medical History: see ehr Resting ECG: sr Resting Heart Rate: 67 bpm Resting Blood Pressure: 167/78mmHg Pretest Chest Pain: No chest pain Nurse/Tech Notes lungs cta, heart tones regular Consent: The procedure was explained to the patient in lay terms. Informed consent was witnessed. Demetri eout was entered into [employer]. History and Stress Test performed by RT Shelton (R) (N) Pharm. Details Pharmacologic stress testing was performed using 0.4mg per 5ml of regadenoson given intravenously ove r 7-10 seconds. Stress Symptoms No chest pain or symptoms. POST EXERCISE Reason for Termination: Infusion complete Target HR: No Max HR: 89 bpm Max Blood Pressure: 165/71mmHg Chest Pain: No. Arrhythmia: No. ST Change: No. INTERPRETATION Stress EKG Conclusion: The resting EKG shows a sinus rhythm with mild nonspecific ST-T wave changes. The stress EKG shows no significant changes from baseline. No EKG evidence of stress-induced ischemia. Imaging Protocol IMAGE PROTOCOL: Rest Tc-99m/stress Tc-99m 1 day Rest: Stress: Viability: Radiopharm.Tc99m FrvnzctkfHl90f Sestamibi Dose9.8mCi 31mCi Img Date 09/03/2021 09/03/2021 Inj-Img [id number]. 60min. Rest Admin Site:IV - Right AntecubitalAdministrator:ANNIE Mcdonald Stress Admin Site: IV - Right AntecubitalAdministrator: RT Nery PeoplesR)(N) STRESS DATA End Diast. Vol.44.0mlAv. Heart Rate78.0bpm End Syst. Vol.2.0mlCO Index BSA0.0L/min Myocardial Mass87.0gEject. Iwaknndi04.0% Stress Rates Pk. Fill Rate1.07EDV/secLVtime Pk. Fill 167.75msec Pk. Empty Rate4.62ESV/secLVtime Pk. Awafa125.31msec 1/3 Pk. Fill0.90EDV/sec Stress Scores Regional WT0.00Summed WT0.00 Regional WM0.00Summed WM0.00 LV Perfusion The stress scans showed no significant defects. The rest scans showed no significant defects. Nuclear imaging shows no reversible ischemia or infarct. Wall Motion Intact LV systolic function with an ejection fraction of greater than 75%. LV Perf. Quant 17 Seg. SSS0.00 17 Seg. SRS0.00 17 Seg. SDS0.00 Stress Defect Extent (% LAD)0.00Rest Defect Extent (% LAD)0.00Rev. Defect Extent (% LAD)0.00 Stress Defect Extent (% LCX) 0.00Rest Defect Extent (% LCX)0.00Rev. Defect Extent (% LCX)0.00 Stress Defect Extent (% RCA)0.00Rest Defect Extent (% RCA)0.00Rev. Defect Extent (% RCA)0.00 Stress Defect Extent (% PAOLA)0.00Rest Defect Extent (% PAOLA)0.00Rev. Defect Extent (% PAOLA)0.00 Conclusion 1. No EKG evidence of stress-induced ischemia. 2. Nuclear imaging shows no reversible ischemia or infarct. 3. Intact LV systolic function with an ejection fraction of greater than 75%. 4. Low risk Lexiscan nuclear stress test. Signed by : Armando Downing MD Electronically Approved : 09/03/2021 17:59:17
== END ==
LOC: NM 08:30
PROVIDERS: ATTEND Internal Medicine Cardiovascular Disease
DX: R07.89 Other chest pain (principal)
CPT/HCPCS: 78452; 93017; A9500; J2785